=== PATIENT | female | born 1930 | race Caucasian/White ===

== ENCOUNTER 2016-04-16 09:12 | Inpatient (IN) | payer MEDICARE ==
[2016-04-16 09:55] LABS: BLOOD UREA NITROGEN 40 MG/DL (7-17); CALCIUM 9.4 MG/DL (8.4-10.2); CALCULATED OSMOLALITY 279 MOs/Kg (270-290); CHLORIDE 105 mEq/L (98-107); GLUCOSE 94 MG/DL (70-99); SODIUM LEVEL 140 mEq/L (137-146)
[2016-04-16] MEDS ORDERED: DEXAMETHASONE 4 MG/ML VIAL ONE (09:55)
[2016-04-16] MEDS ORDERED: GABAPENTIN 300 MG CAP ONE (09:55)
[2016-04-16] MEDS ORDERED: Celecoxib 200 MG CAP PO ONE (09:55)
[2016-04-16] MEDS ORDERED: ACETAMINOPHEN 325 MG/TAB TABLET PO ONE (09:55)
[2016-04-16] MEDS ORDERED: FENTANYL 250 MCG/5 ML VIAL IV ONE (10:00)
[2016-04-16] MEDS ORDERED: EPHEDrine 50 MG/ML VIAL IM ONE (10:00)
[2016-04-16] MEDS ORDERED: TRANEXAMIC ACID 1,000 MG in NS 100 ML IV ONE ×2 (10:00→12:00)
[2016-04-16] MEDS ORDERED: PROPOFOL 200 MG/20 ML VIAL IV ONE (10:00)
[2016-04-16] MEDS ORDERED: SUCCINYLCHOLINE 20 MG/1 ML INJ 10 ML MDV IV ONE (10:00)
[2016-04-16] MEDS ORDERED: ONDANSETRON HCL 4 MG/2 ML VIAL IV ONE (10:00)
[2016-04-16] MEDS ORDERED: PHENYLEPHRINE 10 MG/ML VIAL IC ONE (10:00)
[2016-04-16] MEDS ORDERED: LIDOCAINE 100 MG PFS IV ONE (10:00)
[2016-04-16] MEDS ORDERED: HYDROmorphone 1 MG INJECTION IV PRN ×4 (10:10→15:23)
[2016-04-16] MEDS ORDERED: hydrALAZINE 20 MG/ML VIAL IV PRN (10:10)
[2016-04-16] MEDS ORDERED: ONDANSETRON HCL 4 MG/2 ML VIAL IV PRN ×2 (10:10→15:23)
[2016-04-16] MEDS ORDERED: PROMETHAZINE 25 MG/ML VIAL IV PRN (10:10)
[2016-04-16] MEDS ORDERED: MEPERIDINE 25 MG/ML TUBEX IV PRN (10:10)
[2016-04-16] MEDS ORDERED: ONDANSETRON HCL 4 MG ODT TAB PO PRN (10:10)
[2016-04-16] MEDS ORDERED: FENTANYL 100 MCG/2 ML VIAL IV PRN ×2 (10:10)
[2016-04-16] MEDS ORDERED: LABETALOL 20 MG/4 ML SYRINGE IV PRN (10:10)
--- NOTE | 2016-04-16 10:11 | SC.ANESPOS ---
[id number], Hemodynamically Stable, Pain Control Adequate Phase I & II Recovery Complete: Yes Apparent Anesthesia Complication: No : N PACU Discharge Time: 19:05 - Vital Signs Blood Pressure: 112/66 Pulse: 58 Resp Rate: 18 O2 Sat: 93 Temp: 97.3 F - Comments Anesthesia Discharge Time Report Time 19:05
--- NOTE | 2016-04-16 10:13 | HIM.ANES ---
Anesthesia Evaluation & Plan Diagnoses: INFECT/INFLM REACTION DUE TO INTERNAL RIGHT HIP PROSTH, SUBS (04/16/16) - Focused Review of Systems Cardiac History: Yes: Hx Hypertension, Hx Cardiac Disorders, Hx Abnormal Cholesterol/Hyperlipidemia, Hx Deep Vein Thrombosis (AGE 13 AFTER T&A SX) HEENT: Yes: Cataract Removal (bilateral), Hx Vision Problem (READING), Other HEENT Problems Hx Other HEENT Surgery: T&A CHILD Hx Other HEENT Problems: SINNUSITIS, ALLERGIC RHINNITIS Respiratory: Yes: Hx Asthma (sees Dr. Burton. Also with chronic lesions on lungs , benign.), Hx Emphysema, Hx Pneumonia (12/2015 LT LUNG 2CM MID LUNG NODULE, NO active disease), Other Hx Respiratory (chronic cough) Gastrointestinal: Yes: Hx Gastroesophageal Reflux Disease, Hx Gastrointestinal Disorders Neurological/Musculoskeletal: Yes: Hx Back Pain No: Hx Neurological Disorders Psychological: Yes Hx Anxiety, Yes Hx Mental/Emotional Disorders Blood/Autoimmune: Yes: Hx Blood Transfusions, Hx Anemia No: Hx AIDS, Hx Hepatitis (type) Smoking Status: Former smoker Past Social History: Denies: Substance Use Disorder Hx Stress Test (date): No Hx Echocardiogram (date): Yes (02/20/2015 ef 55% MILD TO MODERATE MR) Hx Chest Xray (date): Yes (07/17/15) Surgical History: Yes: T&A, Back (LUMBAR DISCECTOMY X2), Hip (11/2015 RT HIP REPAIR, 12/2015 I&D RT HIP WITH ANTIBIOTIC SPACER), Knee (RT TKA 2006, RT REDO TKA 03/28/2015), Other (IVC filter 01/02/2016 Dr. Trinh. Hip fracture repair 06/2015, revision.) Other Surgical History: T&A CHILD 01/02/2016 IVC FILTER TOTAL HYSTERECTOMY 1969' BTL - Focused Physical Exam NPO since: after Midnight Mallampati: Class II Thyromental Distance: Greater than 3 Dental: Removable Dental Work Cardiovascular/Chest: Normal Respiratory: Lungs clear Any problems with anesthesia, including nausea and vomiting?: No Any relatives with a history of Malignant Hyperthermia?: No Does the patient have a history of Motion Sickness-: No Other: Problem List Problem Status Onset Anxiety Acute Chronic anticoagulation Acute Closed right hip fracture Acute DVT (deep venous thrombosis) Acute Dehydration Acute Hematoma, non-traumatic Acute Hip fracture Acute Hip pain Acute Hypertension Acute Hypokalemia Acute Hyponatremia Acute Hypotension Acute Hypothermia not associated with low environmental temperature Acute Infection of prosthetic total hip joint Acute Intertrochanteric fracture of right hip Acute Physical debility Acute Right knee pain Acute Septic arthritis of hip Acute Status post total right knee replacement Acute Anemia Chronic Asthma Chronic Dyslipidemia Chronic GERD (gastroesophageal reflux disease) Chronic Hip pain Chronic Osteoporosis Chronic CBC/BMP/Other 04/16/16 09:21 Allergies Allergy/AdvReac Type Severity Reaction Status Date / Time No Known Allergies Allergy Verified 01/11/16 14:06 Home Medications Medication Instructions Recorded Last Taken Type Calcium Carb/Vit D3/Minerals 1 tab PO BID 05/05/12 01/14/16 17:18 History [Calcium 600 + D Tablet] Omeprazole 20 mg PO DAILY 05/05/12 01/15/16 06:48 History Ascorbic Acid [Vitamin C] 500 mg PO DAILY 01/24/15 01/13/16 14:07 History Pravastatin [Pravachol] 20 mg PO DAILY 01/24/15 01/14/16 22:51 History Budesonide/Formoterol Fumarate 2 puff INH BID 03/29/15 01/12/16 07:25 History [Symbicort 160-4.5 Mcg Inhaler] Carvedilol [Coreg] 12.5 mg PO QAM 11/22/15 01/15/16 08:08 History Bupropion HCl [Bupropion HCl Sr] 100 mg PO BID 01/02/16 01/15/16 08:09 History Fluticasone Propionate [Flonase] 2 spray AYLA DAILY 01/02/16 01/15/16 08:09 History Gluc 2Kcl/Chondr/Jeanne Hy/Hy AC 1 cap PO DAILY 01/02/16 01/10/16 16:00 History [Glucosamine & Chondroitin Cap] [place]-3S/Dha/Epa/Fish Oil [Fish 1 cap PO DAILY 01/02/16 01/14/16 12:59 History Oil 1,200 mg Softgel] Vitamin B Complex [B Complex] 1 tab PO DAILY 01/02/16 01/10/16 16:00 History Vitamin E 200 unit PO DAILY 01/02/16 01/14/16 13:00 History Carvedilol [Coreg] 25 mg PO HS 04/13/16 Unknown History Oxycodone Immediate Release 5 mg PO Q4-6H PRN 04/13/16 Unknown History [Oxycodone Immediate Release (OxyIR)] L.acidoph & Paracasei,B.lactis 1 each PO DAILY 04/14/16 Unknown History [Probiotic] Methylcellulose [Fiber Therapy] 1,000 mg PO DAILY 04/14/16 Unknown History Turmeric Root Extract [Turmeric] 500 mg PO DAILY 04/14/16 Unknown History Height and Weight Patient's height 5 ft 7 in Patient's weight 187 lb 11.2 oz BMI 29.4 - Anesthetic Plan Anesthesia Type: General ASA Class: 3 -: I have examined this patient and reviewed the medical record. The patient has been assessed prior to anesthesia. Risks and benefits of anesthesia and anesthetic technique options have been discussed and all questions answered. The patient accepts the risk and desires me to proceed with the planned anesthetic.
[2016-04-16] MEDS ORDERED: BACITRACIN 50,000 UNITS VIAL ONE (10:34)
[2016-04-16] MEDS: BUPIVACAINE LIPOSOME/PF 1.3% 20 ML VIAL INF ONE ×3 (11:04→14:30)
--- NOTE | 2016-04-16 15:12 | HIMOPRPT ---
DATE OF PROCEDURE: 04/16/16 PREOPERATIVE DIAGNOSIS: 1. Infected right hip hemiarthroplasty 2. Status post removal of components and placement of antibiotic spacer right hip 01/02/2016 POSTOPERATIVE DIAGNOSIS: Same PROCEDURE: 1. Irrigation and debridement right hip. Removal of antibiotic spacer. 2. Revision right hip hemiarthroplasty SURGEON: Georges Child D.O. [facility] Health Officer: Rigo JUNG ANESTHESIOLOGIST: Dr. Hurd ANESTHESIA: GETA ESTIMATED BLOOD LOSS: 700cc COMPLICATIONS: none DRAINS: hemovac x 2 incisional wound vac SPECIMENS: Frozen sections x 5 intra-op wound culture x 2 FINDING: as above < 5 Neutrophils/HPF on Frozen sections DESCRIPTION OF PROCEDURE: Mrs Nix is an 85-year-old female with a history of infected right hip hemiarthroplasty. Patient initially underwent removal of a cephalomedullary nail for nonunion on 11/23/2015. This was converted to a calcar replacing hemiarthroplasty. She unfortunately became infected and underwent a washout x2 on 01/02/2016 and repeat I and D on 01/11/2016. An antibiotic spacer was placed. She was treated with 6 weeks of IV antibiotics. She had been followed by infectious disease specialist at [facility]. Patient has now been off of all antibiotics for 4 weeks. Workup for recurrent infection was within normal limits. A repeat aspiration was normal and sed rate and CRP continued to trend down. Patient presents today for removal of the antibiotic spacer and replantation/revision of right hip hemiarthroplasty. All risks, benefits, and alternatives to the planned procedure were discussed with the patient. She did understand these risks and elected to proceed. On the day of her procedure she was identified in the preop holding area and the right lower extremity was marked as the correct operative side. She was then taken the operating room where she was positioned in the lateral decubitus position with the right side up and all bony prominences well padded. She did receive vancomycin IV after cultures were obtained. 1 g IV of tranexamic acid was given preoperatively as well. The right lower extremity was then prepped and draped in sterile fashion. A time-out was performed, again identifying the correct patient and the right side as correct operative side. Patient's existing lateral incision was marked. Ten blade was utilized to incise the skin. Midportion of the scar was ellipsed for better wound closure. Soft tissue planes were then developed and the ITB and was identified. ITB and was then incised in line with the skin incision. Significant amount of scar tissue was present and this was released developing our tissue planes. The abductor musculature that remained attached to proximal femur next was identified. There was significant chronic degeneration and atrophy of the abductors from multiple surgical procedures. The anterior 1/3 of the abductors were again released and the hip joint was exposed. The antibiotic spacer prosthesis was then dislocated. Small osteotome was utilized to remove the proximal edge of the cement mantle and then the spacer was easily removed from the canal. No additional bone loss was noted. At this point I thoroughly irrigated the patient's canal and the entirety of the hip. A thorough debridement of all skin , subcutaneous tissues, muscle, fascia and bone was performed with rongeur, curettes, forceps and scalpel. Reverse curettes were utilized to remove pseudomembrane from the femoral canal. The acetabulum was fully exposed and inspected. No further cartilage damage to the acetabulum was noted we then began our preparation of the femur. Sequentially reamed by hand up to a size 16.5 mm Reamer. This was a tight canal fit and was stable. An intraoperative x -ray was taken demonstrating good fill of the canal. After the 16.5 mm Reamer was seated we then began the preparation for the cone body. Sequential proximal reamers were placed up to a 25 mm Reamer which did give bony contact. A 25 mm body was then chosen. The trial components were then assembled. The 25 mm +0 mm trial body was then inserted and tightened. A reduction was performed with a +0 head. This did restore the patient's leg lengths. Full range of motion was achieved on the OR table. No impingement or instability was noted. I marked the patient's current correct anteversion with a Bovie and the trial components were then removed. The canal and joint were again thoroughly irrigated with an additional 3 L of sterile saline. Next the final implant consisting of a 127 mm x 17 mm plasma episcopal modular stem with a 25 mm +0 proximal cone body was malleted into position. This was a tight canal fit and was stable. The final 48 mm x 28 mm +0 bipolar head was then malleted into position. A final reduction was performed. The hip was again placed through range of motion and was stable. Leg lengths were restored. One Dall- Miles cable was placed in the intertrochanteric region while preparation of the femur was performed. This was left in place for additional stability. The Hemovac drain was then placed into the joint. A 2nd Hemovac drain was placed between the abductor tissue and the ITB and. The abductors were repaired back to the trochanter with a 5. FiberWire suture in Long-Umang fashion through drill holes in the trochanter. This was reinforced proximally with 0 Ethibond interrupted sutures. An adequate abductors repair was achieved despite lack of healthy tissue. No additional musculotendinous loss occurred. The ITB and was then closed with interrupted 1. Vicryl sutures as well as a running 1. Strata fix Quill suture. The subcutaneous tissues were closed in layered fashion with 0 Vicryl, 2 O Vicryl sutures and david for the skin. An incisional Prevena wound VAC was applied at the end of the case. Patient was placed into an abduction pillow. She tolerated this procedure well and was transferred to the PACU in stable condition. Postop plan: 24 hours of IV vancomycin then discontinue. We will continue to follow intraoperative cultures taken during this procedure. Drains out when less than 50 cc per shift. Incisional wound VAC will remain in place for 5 days and then an Aqua gel dressing will be applied. Weightbearing as tolerated right lower extremity with physical therapy. Anterolateral hip precautions. Discharge plan to rehab/snf facility Rigo JUNG was the operative pest controller assistant during this case. Due to the complex nature of the procedure, and under direct supervision, his assistance was required for patient positioning, prepping and draping, soft tissue retraction, handling of instruments, manipulation of the extremity, wound closure, application of dressings postoperatively Implants: [place] [employer] modular Plasma stem 127mm x 17mm 25mm +0 Cone Body 48mm x 28mm +0 Bipolar V40 Head 1 Dall Miles cable
[2016-04-16] MEDS ORDERED: DIPHENHYDRAMINE 50 MG/ML VIAL IV PRN (15:23)
[2016-04-16] MEDS ORDERED: Aluminum;Magnesium;Simethicone 30 ML UDC PO PRN (15:23)
[2016-04-16] MEDS ORDERED: MAGNESIUM HYDROXIDE 30 ML BOTTLE PO PRN (15:23)
[2016-04-16] MEDS ORDERED: DIPHENHYDRAMINE 25 MG CAP PO PRN (15:23)
[2016-04-16] MEDS ORDERED: SODIUM CHLORIDE 0.9% 3 ML FLUSH FLUSH PRN (15:23)
[2016-04-16] MEDS ORDERED: HYDROmorphone 1 MG INJECTION ONE (15:36)
[2016-04-16] MEDS ORDERED: NALOXONE 0.4 MG/ML AMPULE IV SCH (16:00)
[2016-04-16] MEDS ORDERED: SODIUM CHLORIDE 0.9% 3 ML FLUSH FLUSH SCH (16:00)
[2016-04-16] MEDS ORDERED: Acetaminophen, Intravenous 1,000 MG/100 ML IVBOT IV ONE (16:00)
[2016-04-16] MEDS ORDERED: Pharmacy Discontinue All Previous Acetaminophen Orders SCH (16:00)
[2016-04-16] MEDS ORDERED: Pharmacy Order Set Alert SCH (16:00)
[2016-04-16] MEDS ORDERED: FLUTICASONE PROPIONATE 16 GM BOT NAS SCH (16:00)
--- NOTE | 2016-04-16 16:18 | DIRPT ---
CLINICAL DATA: Status post right hip replacement. EXAM: PELVIS - 1-2 VIEW COMPARISON: Previous examinations, including earlier today. FINDINGS: Right hip bipolar prosthesis with a proximal femoral cerclage wire. The prosthetic components are in satisfactory position and alignment with no fracture or dislocation. Diffuse osteopenia. Atheromatous arterial calcifications. IMPRESSION: Satisfactory postoperative appearance of a right hip prosthesis. Electronically Signed By: Jorge Lei M.D. On: 04/16/2016 16:15
[2016-04-16] MEDS: FENTANYL 100 MCG/2 ML VIAL ONE ×2 (16:35→17:11)
[2016-04-16] MEDS: NS 1,000 ML IV SCH (16:51)
[2016-04-16] MEDS: ALBUTEROL 0.083% 3 ML NEB NEB SCH (19:09)
[2016-04-16] MEDS: BUDESONIDE 0.5 MG NEB NEB SCH (19:11)
--- NOTE | 2016-04-16 19:21 | HIMCONSMED ---
Consultation Date: 04/16/16 Requesting Physician: Georges Child Consulting Doctor: Val León Consult Reason: Medical Management Patricia Schultz is an 85 year old woman with a known R hip infection who has been residing at [facility]. She had a hip replacement last spring that became infected, had to be removed and in December of 2015 the joint was removed and an antibiotic spacer inserted. She has received IV antibiotics for eight weeks and returns at this time for final right total hip arthroplasty. Additional complications include a prior history of DVT in her right leg in November 2015 , with placement of an IVC filter January 04, 2016. Due to her anticoagulation, she had significant bleeding and developed a large hematoma of the right hip. For this reason, no anticoagulation is planned after this admission, just aspirin, and the continued presence of the IVC filter. Chief Complaint: medical management - Past Medical and Surgical History Cardiac History: Reports: Hypertension, Hypercholesterolemia, Valvular Heart Disease Respiratory History: Reports: Asthma (sees Dr. Burton. Also with chronic lesions on lungs, benign.), Pneumonia (12/2015 LT LUNG 2CM MID LUNG NODULE, NO active disease), Emphysema. Denies: Pulmonary Embolism GI/ History: Reports: Urinary Tract Infection (CHRONIC UTI WITH E.COLI), Gastroesophageal Reflux Systemic History: Reports: Anemia. Denies: Cancer Musculoskeletal History: Reports: Arthritis, Osteoarthritis Psychological History: Reports: Anxiety. Denies: Substance Use Disorder Neurological History: Reports: No Significant History Past Surgical History: Reports: Hysterectomy, Tonsillectomy/Adnoidectomy, Other (IVC filter 01/02/2016 Hip fracture repair 06/2015, revision.) ADDITIONAL HISTORY: 03/28/15: revision of right total knee arthroplasty- Dr. Child 07/18/15: Right hip gamma nail and right hip intramedullary nail for repair of intertrochanteric fracture- Dr. Hayden 11/13/15: Aspiration of R hip joint 11/22-11/27/15 admitted for infection of right hip. Developed DVT of right leg. Started on Xarelto. 01/01/16:recurrent or persistent infection of right hip- IVC filter placed by Dr. Trinh. Found to have E. Coli infection of hip. 01/02/16: R hip hemiarthroplasty hardware removed by Dr. Child. PICC line placed and patient sent to [facility] for further antibiotics. Allergies No Known Allergies Allergy (Verified 04/16/16 10:49) Home Medications Calcium Carb/Vit D3/Minerals [Calcium 600 + D Tablet] 1 tab PO BID 05/05/12 Ascorbic Acid [Vitamin C] 500 mg PO DAILY 01/24/15 Pravastatin [Pravachol] 20 mg PO DAILY 01/24/15 Budesonide/Formoterol Fumarate [Symbicort 160-4.5 Mcg Inhaler] 2 puff INH BID Carvedilol [Coreg] 12.5 mg PO QAM 11/22/15 Bupropion HCl [Bupropion HCl Sr] 100 mg PO BID 01/02/16 Fluticasone Propionate [Flonase] 2 spray AYLA DAILY 01/02/16 Gluc 2Kcl/Chondr/Jeanne Hy/Hy AC [Glucosamine & Chondroitin Cap] 1 cap PO DAILY [place]-3S/Dha/Epa/Fish Oil [Fish Oil 1,200 mg Softgel] 1 cap PO DAILY 01/02/16 Vitamin B Complex [B Complex] 1 tab PO DAILY 01/02/16 Vitamin E 200 unit PO DAILY 01/02/16 Carvedilol [Coreg] 25 mg PO HS 04/13/16 Oxycodone Immediate Release [Oxycodone Immediate Release (OxyIR)] 5 mg PO Q4-6H PRN 04/13/16 L.acidoph & Paracasei,B.lactis [Probiotic] 1 each PO DAILY 04/14/16 Methylcellulose [Fiber Therapy] 1,000 mg PO DAILY 04/14/16 Turmeric Root Extract [Turmeric] 500 mg PO DAILY 04/14/16 - Social History Travel Outside of [place] in the Last 3 Months?: No Lives: in Retirement/SNF Smoking Status: Former smoker Social History: Denies: Alcohol Use, Substance Use Disorder - Family History Reports: Hypertension (SON), Diabetes (CHILDREN), Cancer (SON BLADDER CANCER), Cardiac Disorders (MOTHER, SON). Denies: Stroke - Review of Systems Constitutional: Weakness. negative: Chills, Fever, Diaphoresis Eyes: No Symptoms Reported Ears: No Symptoms Reported Nose: No Symptoms Reported. negative: Bleeding, Congestion, Discharge Mouth: Denture, Dry Mouth Throat/Neck: No Symptoms Reported. negative: Hoarseness, Snoring, Lymphadenopathy Respiratory: No Symptoms Reported. negative: Cough, Shortness of Breath, Wheezing Cardiovascular: negative: Chest Pain, Edema, Palpitations, PND Gastrointestinal: Heartburn, Hemorrhoids. negative: Nausea, Vomiting, Abdominal Pain, Diarrhea, Constipation Genitourinary: Postmenopause. negative: Dysuria, Frequency Neurological: Gait Difficulty Musculoskeletal:: Arthritis, Osteoarthritis Integumentary: No Symptoms Reported Allergic/Immunologic: No Symptoms Reported Hematologic: Anemia Endocrine: No Symptoms Reported Psychiatric: No Symptoms Reported - Physical Exam Vital Signs: Initial Vitals Temperature 97.8 F 04/16/16 10:41 Pulse Rate 68 04/16/16 10:41 Respiratory Rate 18 04/16/16 10:41 Blood Pressure 186/82 H 04/16/16 10:41 Pulse Oxygen Saturation 96 04/16/16 10:41 Constitutional: No apparent distress, Alert Oriented to: Time, Person, Place - HEENT Head: Normal Eye: Normal Oropharynx: Normal Tympanic Membrane: Normal ENT EAC: Normal Nose: No Symptoms Reported Respiratory: Normal - CTA Cardiovascular: Normal - GI Auscultation: Normal Palpation: Normal Tenderness: Non tender Romo's Sign: Negative Rectal Exam: Deferred - Musculoskeletal Back: Normal Extremities: Normal Spine: non-tender - Integumentary Skin: Warm, Dry Lymphatics: Normal - Neurologic Memory Impaired: Normal Motor Function: Normal Cranial Nerve: Normal Cerebellar: Normal Mood Description: Normal Thought: Coherent Perception: Normal - Lab Results Laboratory Tests 04/16/16 04/16/16 09:21 15:40 Hgb 9.7 L Hct 28.8 L Sodium 140 Potassium 4.3 Chloride 105 Carbon Dioxide 27 Anion Gap 12 BUN 40 H Creatinine 1.30 H Estimated GFR (MDRD) 39 L Glucose 94 Calculated Osmolality 279 Calcium 9.4 - Assessment (1) Acute kidney injury superimposed on chronic kidney disease N17.9 - ACUTE KIDNEY FAILURE, UNSPECIFIED; N18.9 - CHRONIC KIDNEY DISEASE, UNSPECIFIED Acute Present on Admission: Yes Hydrate patient and follow renal function closely. Patient receiving vancomycin for hip prophylaxis against infection. (2) Anemia D64.9 - ANEMIA, UNSPECIFIED Acute Present on Admission: Yes Qualifiers: Anemia type: other cause Iron deficiency anemia type: I Vitamin B12 deficiency anemia type: V Folate deficiency anemia type: F Bone marrow failure anemia type: B Hemolytic anemia type: H Other causes of anemia: chronic disease, kidney Qualified Code(s): N18.9 - Chronic kidney disease, unspecified; D63.1 - Anemia in chronic kidney disease Patient also bleeds easily, so will want to follow CBC closely. (3) Physical debility R53.81 - OTHER MALAISE Acute Consult Physical therapy to begin rehabilitation and gait training. Continue falls and safety precautions (4) Hypertension I10 - ESSENTIAL (PRIMARY) HYPERTENSION Acute Present on Admission: Yes Qualifiers: Hypertension type: essential hypertension Qualified Code(s): I10 - Essential (primary) hypertension continue Coreg 12.5 mg BID, follow BP closely (5) Osteoporosis M81.0 - AGE-RELATED OSTEOPOROSIS W/O CURRENT PATHOLOGICAL FRACTURE Chronic Present on Admission: Yes Continue calcium and vitamin-D (6) Asthma J45.909 - UNSPECIFIED ASTHMA, UNCOMPLICATED Chronic Qualifiers: Asthma severity: mild persistent Asthma complication type: uncomplicated Qualified Code(s): J45.30 - Mild persistent asthma, uncomplicated Chronic. No evidence of acute exacerbation. Plan: Continue home medications. Add additional medications depending on hospital course. (7) Hip pain M25.559 - PAIN IN UNSPECIFIED HIP Chronic Qualifiers: Laterality: right Qualified Code(s): M25.551 - Pain in right hip Continue narcotic analgesics on as needed basis Case Care Discussed with: Patient, Consultants, Family, Nursing Staff Total Time: 65 min Critical Care: No Couseling Time (>50% in counseling/coordination): Yes Code: [id number]
[2016-04-16] MEDS: CALCIUM CARBONATE + VITAMIN D 500 MG TAB PO SCH (20:01)
[2016-04-16] MEDS: Aspirin (Orange Enteric Coated) 325 mg tab PO SCH (20:01)
[2016-04-16] MEDS: PRAVASTATIN 20 MG TAB PO SCH (20:03)
[2016-04-16] MEDS: DOCUSATE-SENNA CONCENTRATE TAB PO SCH (20:16)
[2016-04-16] MEDS: OXYCODONE HCL 5 MG TABLET PO PRN (20:16)
[2016-04-16] MEDS: OXYCODONE (OxyCONTIN) 10 MG TAB PO SCH (20:16)
[2016-04-16] MEDS: BuPROPion (BID formulation) 100 MG TAB.SR.12H PO SCH (20:16)
[2016-04-16] MEDS: SODIUM CHLORIDE 0.9% 3 ML FLUSH FLUSH SCH (20:19)
[2016-04-16] MEDS ORDERED: CARVEDILOL 12.5 MG TAB PO SCH (21:00)
[2016-04-16] MEDS: Acetaminophen, Intravenous 1,000 MG/100 ML IVBOT IV SCH (23:58)
[2016-04-17] MEDS: ALBUTEROL 0.083% 3 ML NEB NEB SCH ×4 (01:09→19:11)
[2016-04-17] MEDS: OXYCODONE HCL 5 MG TABLET PO PRN ×2 (01:47→06:10)
[2016-04-17] MEDS: NS 1,000 ML IV SCH ×2 (02:43→14:09)
[2016-04-17] MEDS: Acetaminophen, Intravenous 1,000 MG/100 ML IVBOT IV SCH ×3 (04:26→14:55)
[2016-04-17] MEDS: SODIUM CHLORIDE 0.9% 3 ML FLUSH FLUSH SCH ×2 (06:13→17:35)
--- NOTE | 2016-04-17 07:02 | PCM.ORTHBL ---
- Subjective Post Op Day: 1 Daily Assessment - Patient: Reports: No new complaints, Awake Alert Oriented x4 , Pain is less, Tolerating Regular Diet, Afebrile, Other (denies chest pain). Denies: Ambulating with Physical Therapist (To begin today), Difficulty Swallowing, Shortness of breath, Nausea, Vomiting - Objective / Physical Exam Vital Signs: Temperature: 97.3 F (04/17/16 06:45) HR: 58 (04/17/16 06:45)RR: 18 (04/17/16 06: 45) BP: 112/66 (04/17/16 06:45)Pulse Ox: 93 (04/17/16 06:45) General: Alert, Oriented x3, Cooperative, No acute distress, Well appearing Musculoskeletal / Extremities: 2 plus Dorsalis Pedis Pulse, Dressing Clean/Dry/ Intact. negative: Tenderness (no significant calf tenderness) Neurological: Positive Sensation First Dorsal Web Space, Sensation to light touch intact, Extensor Hallicus Longus Intact, Flexor Hallicus Longus Intact, Dorsiflexion Intact, Plantarflexion Intact Skin: No rashes Laboratory/Diagnostics Reviewed: 04/17/16 06:33 04/17/16 06:33 - Assessment and Plan (1) Status post revision of total hip replacement Acute Z96.649 - PRESENCE OF UNSPECIFIED ARTIFICIAL HIP JOINT Present on Admission: Yes Plan: POD#1 s/p explant of antibiotic spacer and revision right LION PT/OT/WBAT TEDS/SCDS/ECASA 325mg BID for 30 days post-op for DVT prophylaxis. Patient has IVC filter. She has history of recurrent hematoma and wound dehiscence Continue pain management Awaiting final cultures. DC plan for SNF/rehab
[2016-04-17] MEDS: BUDESONIDE 0.5 MG NEB NEB SCH ×2 (07:34→19:14)
[2016-04-17 07:38] LABS: BLOOD UREA NITROGEN 34 MG/DL (7-17); CALCIUM 8.3 MG/DL (8.4-10.2); CALCULATED OSMOLALITY 271 MOs/Kg (270-290); CHLORIDE 106 mEq/L (98-107); GLUCOSE 76 MG/DL (70-99); SODIUM LEVEL 137 mEq/L (137-146)
[2016-04-17] MEDS ORDERED: Remove Transdermal Scopolamine Patch after 24 hours ONE (08:00)
[2016-04-17] MEDS: Aspirin (Orange Enteric Coated) 325 mg tab PO SCH ×2 (08:57→17:34)
[2016-04-17] MEDS: PSYLLIUM 1 PACK PO SCH (08:57)
[2016-04-17] MEDS: OXYCODONE (OxyCONTIN) 10 MG TAB PO SCH ×2 (08:57→21:12)
[2016-04-17] MEDS: BuPROPion (BID formulation) 100 MG TAB.SR.12H PO SCH (08:57)
[2016-04-17] MEDS: CALCIUM CARBONATE + VITAMIN D 500 MG TAB PO SCH ×2 (08:57→17:34)
[2016-04-17] MEDS: OMEGA-3-ACID ETHYL ESTERS 1000 MG CAP PO SCH (08:57)
[2016-04-17] MEDS: FLUTICASONE PROPIONATE 16 GM BOT NAS SCH (08:58)
[2016-04-17] MEDS ORDERED: CARVEDILOL 12.5 MG TAB PO SCH (09:00)
[2016-04-17] MEDS: ASCORBIC ACID 500 MG TAB PO SCH (09:00)
[2016-04-17] MEDS: PROBIOTIC BLEND TAB PO SCH (09:00)
[2016-04-17] MEDS ORDERED: [UNRECOGNIZED DRUG - OTHER] PO SCH (09:00)
[2016-04-17] MEDS: VIT B-C COMPLEX (NEPHROVITE) TAB PO SCH (09:41)
--- NOTE | 2016-04-17 10:42 | GENMEDPROG ---
Chief Complaint: s/p R hip arthroplasty, HTN, ZAN, UTI, anemia - Physical Examination Vital Signs and I&O: Last Vital Signs Temp 97.3 F L 04/17/16 06:45 Pulse 58 L 04/17/16 06:45 Resp 18 04/17/16 06:45 BP 112/66 04/17/16 06:45 Pulse Ox 93 04/17/16 06:45 Oxygen Pulse Oxygen Saturation 93 O2 Device Room Air Oxygen Flow Rate 1 Fraction of Inspired Oxygen ( 100 FIO2) Intake & Output 04/14/16 04/15/16 04/16/16 04/17/16 23:59 23:59 23:59 23:59 Intake Total 1495 Output Total 900 510 Balance -900 985 Patient's weight 85.139 kg 84.822 kg 85.36 kg General: Alert, Oriented x3, Cooperative, No acute distress, Well appearing HEENT: PERRLA, EOMI, Anicteric Sclera, Mucous membr. moist/pink Neck: Full range of motion, Normal Trachea alignment, Normal inspection Lymphatics: Normal Respiratory: Normal - CTA, Diminished Cardiovascular: Regular rate and rhythm, Normal S1, Normal S2 GI: Normal bowel sounds, Soft, Non tender, No masses Extremities/Musculoskeletal: Normal pulses, DJD Skin: No rashes Neurological: Normal speech, Strength at 5/5 X4 ext, Normal tone, Cranial nerves 3-12 NL Psych/Mental Status: Appropriate, Normal Affect, Cooperative Lab/DI/Studies Reviewed: Microbiology 04/14/16 08:30 Urine - Clean Catch - Midstream Urine Culture - Final Staphylococcus epidermidis Enterococcus faecium - Assessment (1) Acute kidney injury superimposed on chronic kidney disease Acute N17.9 - ACUTE KIDNEY FAILURE, UNSPECIFIED; N18.9 - CHRONIC KIDNEY DISEASE, UNSPECIFIED Comment/Plan: Hydrate patient and follow renal function closely. Patient receiving vancomycin for hip prophylaxis against infection. Continue hydration if patient will be in hospital receiving PT. Renal funciton improving, but still not at baseline. (2) Anemia Acute D64.9 - ANEMIA, UNSPECIFIED Qualifiers: Anemia type: other cause Iron deficiency anemia type: I Vitamin B12 deficiency anemia type: V Folate deficiency anemia type: F Bone marrow failure anemia type: B Hemolytic anemia type: H Other causes of anemia: chronic disease, kidney Qualified Code(s): N18.9 - Chronic kidney disease, unspecified; D63.1 - Anemia in chronic kidney disease Comment/Plan: Patient also bleeds easily, so will want to follow CBC closely. (3) UTI (urinary tract infection), bacterial Acute N39.0 - URINARY TRACT INFECTION, SITE NOT SPECIFIED; A49.9 - BACTERIAL INFECTION, UNSPECIFIED Comment/Plan: Staph epi and Enterococcus, both sensitive to Linezolid. Recommend 600 mg PO BID x 7 days, and hold Bupropion for that duration. (4) Physical debility Acute R53.81 - OTHER MALAISE Comment/Plan: Consult Physical therapy to begin rehabilitation and gait training. Continue falls and safety precautions (5) Hypertension Acute I10 - ESSENTIAL (PRIMARY) HYPERTENSION Qualifiers: Hypertension type: essential hypertension Qualified Code(s): I10 - Essential (primary) hypertension Comment/Plan: Hold or reduce dose of Coreg to 6.25 mg BID, follow BP closely- quite low today. Recommend continued fluids. (6) Osteoporosis Chronic M81.0 - AGE-RELATED OSTEOPOROSIS W/O CURRENT PATHOLOGICAL FRACTURE Comment/Plan: Continue calcium and vitamin-D (7) Asthma Chronic J45.909 - UNSPECIFIED ASTHMA, UNCOMPLICATED Qualifiers: Asthma severity: mild persistent Asthma complication type: uncomplicated Qualified Code(s): J45.30 - Mild persistent asthma, uncomplicated Comment/Plan: Chronic. No evidence of acute exacerbation. Plan: Continue home medications. Add additional medications depending on hospital course. (8) Hip pain Chronic M25.559 - PAIN IN UNSPECIFIED HIP Qualifiers: Laterality: right Qualified Code(s): M25.551 - Pain in right hip Comment/Plan: Continue narcotic analgesics on as needed basis
[2016-04-17] MEDS ORDERED: Vaccine Screening Complete SCH (13:00)
[2016-04-17] MEDS: LINEZOLID 600 MG TAB PO SCH ×2 (14:55→21:12)
[2016-04-17] MEDS: ACETAMINOPHEN 325 MG/TAB TABLET PO SCH (21:12)
[2016-04-17] MEDS: CARVEDILOL 6.25 MG TAB PO SCH (21:13)
[2016-04-17] MEDS: PRAVASTATIN 20 MG TAB PO SCH (21:13)
[2016-04-17] MEDS: DOCUSATE-SENNA CONCENTRATE TAB PO SCH (21:14)
[2016-04-17] MEDS ORDERED: Docusate Sodium 100 MG CAP ONE (21:18)
[2016-04-18] MEDS: ALBUTEROL 0.083% 3 ML NEB NEB SCH ×4 (01:00→20:45)
[2016-04-18] MEDS: ACETAMINOPHEN 325 MG/TAB TABLET PO SCH ×3 (06:06→22:04)
[2016-04-18] MEDS: SODIUM CHLORIDE 0.9% 3 ML FLUSH FLUSH SCH ×2 (06:07→17:06)
--- NOTE | 2016-04-18 06:46 | PCM.ORTHBL ---
- Subjective Post Op Day: 2 Daily Assessment - Patient: Reports: No new complaints, Awake Alert Oriented x4 , Pain is less, Tolerating Regular Diet, Voiding without difficulty, Afebrile, Ambulating with Physical Therapist. Denies: Shortness of breath, Nausea, Vomiting - Objective / Physical Exam Vital Signs: Temperature: 97.4 F (04/18/16 06:00) HR: 80 (04/18/16 06:00)RR: 20 (04/18/16 06: 00) BP: 95/55 (04/18/16 06:00)Pulse Ox: 93 (04/18/16 06:00) General: Alert, Oriented x3, Cooperative, No acute distress, Well appearing Musculoskeletal / Extremities: 2 plus Dorsalis Pedis Pulse, Dressing Clean/Dry/ Intact. negative: Tenderness (no calf tendernes) Neurological: Positive Sensation First Dorsal Web Space, Sensation to light touch intact, Extensor Hallicus Longus Intact, Flexor Hallicus Longus Intact, Dorsiflexion Intact, Plantarflexion Intact Skin: No rashes - Assessment and Plan (1) Status post revision of total hip replacement Acute Z96.649 - PRESENCE OF UNSPECIFIED ARTIFICIAL HIP JOINT Present on Admission: Yes Plan: POD#2 s/p removal of antibiotic spacer and right LINO revision PT/OT/WBAT TEDS/SCDS/ECASA 325mgBID for 30 days post-op for DVT prophylaxis. Patient has IVC filter. History of recurrent hematoma and wound dehiscence Continue pain management Patient on Linezolid for 1 week given urine cultures D/C plan for [facility]
[2016-04-18 07:27] LABS: MPV 9.1 fL (7.4-10.4)
[2016-04-18] MEDS: BUDESONIDE 0.5 MG NEB NEB SCH ×2 (07:39→20:47)
[2016-04-18] MEDS: LINEZOLID 600 MG TAB PO SCH ×2 (08:17→22:05)
[2016-04-18] MEDS: PSYLLIUM 1 PACK PO SCH (08:17)
[2016-04-18] MEDS: ASCORBIC ACID 500 MG TAB PO SCH (08:17)
[2016-04-18] MEDS: CALCIUM CARBONATE + VITAMIN D 500 MG TAB PO SCH ×2 (08:17→17:06)
[2016-04-18] MEDS: OMEGA-3-ACID ETHYL ESTERS 1000 MG CAP PO SCH (08:17)
[2016-04-18] MEDS: PROBIOTIC BLEND TAB PO SCH (08:17)
[2016-04-18] MEDS: Aspirin (Orange Enteric Coated) 325 mg tab PO SCH ×2 (08:17→17:06)
[2016-04-18] MEDS: VIT B-C COMPLEX (NEPHROVITE) TAB PO SCH (08:17)
[2016-04-18] MEDS: FLUTICASONE PROPIONATE 16 GM BOT NAS SCH (08:18)
[2016-04-18] MEDS: CARVEDILOL 6.25 MG TAB PO SCH ×2 (08:18→22:05)
[2016-04-18] MEDS ORDERED: Pharmacy Change IV Fluid Rate to KVO XX SCH (09:00)
[2016-04-18] MEDS ORDERED: NS 1,000 ML IV SCH (09:00)
[2016-04-18] MEDS: OXYCODONE (OxyCONTIN) 10 MG TAB PO SCH ×2 (09:52→22:09)
[2016-04-18] MEDS: OXYCODONE HCL 5 MG TABLET PO PRN ×2 (12:48→22:59)
--- NOTE | 2016-04-18 16:35 | GENMEDPROG ---
Chief Complaint: Feels okay. Still moderate pain in her right hip. Blood pressures remain borderline Notes Reviewed: Yes Events from last night noted and discussed with Clinical Staff Current Medication List: Reviewed Currently: Denies: Cough, Wheezing, FONSECA, SOB - Physical Examination Vital Signs and I&O: Last Vital Signs Temp 98 F 04/18/16 13:35 Pulse 75 04/18/16 13:35 Resp 18 04/18/16 12:52 BP 118/58 L 04/18/16 12:52 Pulse Ox 97 04/18/16 13:35 Oxygen Pulse Oxygen Saturation 97 O2 Device Room Air Oxygen Flow Rate 1 Fraction of Inspired Oxygen ( 100 FIO2) Intake & Output 04/15/16 04/16/16 04/17/16 04/18/16 23:59 23:59 23:59 23:59 Intake Total 3414 600 Output Total 500 540 5226 Balance -900 2904 -400 Patient's weight 84.822 kg 85.36 kg General: Alert, Oriented x3, Cooperative, No acute distress, Well appearing HEENT: Normal, PERRLA, EOMI, Anicteric Sclera Neck: Non-tender, Full range of motion, Normal Trachea alignment, Normal inspection. negative: JVD Lymphatics: Normal. negative: Adenopathy Respiratory: Normal - CTA Cardiovascular: Regular rate and rhythm, No Gallops,Rubs/Murmurs GI: Normal bowel sounds, Soft, Non tender, No hepatospenomegaly Extremities/Musculoskeletal: Normal pulses, Tenderness, Swelling Skin: No rashes, No breakdown Neurological: Normal speech, Normal tone, Reflexes 2+ Psych/Mental Status: Appropriate, Normal Affect, Cooperative Lab/DI/Studies Reviewed: Laboratory Results - last 24 hr 04/18/16 06:30 WBC 8.6 RBC 2.55 L Hgb 8.2 L Hct 24.5 L MCV 96 MCH 32.0 MCHC 33.4 RDW 14.5 Plt Count 106 L MPV 9.1 - Assessment (1) Acute kidney injury superimposed on chronic kidney disease Acute N17.9 - ACUTE KIDNEY FAILURE, UNSPECIFIED; N18.9 - CHRONIC KIDNEY DISEASE, UNSPECIFIED Comment/Plan: Monitor. Recheck in a.m.. (2) Anemia Acute D64.9 - ANEMIA, UNSPECIFIED Qualifiers: Anemia type: other cause Iron deficiency anemia type: I Vitamin B12 deficiency anemia type: V Folate deficiency anemia type: F Bone marrow failure anemia type: B Hemolytic anemia type: H Other causes of anemia: chronic disease, kidney Qualified Code(s): N18.9 - Chronic kidney disease, unspecified; D63.1 - Anemia in chronic kidney disease Comment/Plan: Slightly worse today at 8.2. However would not transfuse at this level as some dilutional component. Continue to monitor. (3) UTI (urinary tract infection), bacterial Acute N39.0 - URINARY TRACT INFECTION, SITE NOT SPECIFIED; A49.9 - BACTERIAL INFECTION, UNSPECIFIED Comment/Plan: Continue linezolid for now (4) Hypertension Acute I10 - ESSENTIAL (PRIMARY) HYPERTENSION Qualifiers: Hypertension type: essential hypertension Comment/Plan: Hold meds due to relative hypotension. (5) Physical debility Acute R53.81 - OTHER MALAISE Comment/Plan: Consult Physical therapy to begin rehabilitation and gait training. Continue falls and safety precautions (6) Asthma Chronic J45.909 - UNSPECIFIED ASTHMA, UNCOMPLICATED Qualifiers: Asthma severity: mild persistent Asthma complication type: uncomplicated Qualified Code(s): J45.30 - Mild persistent asthma, uncomplicated Comment/Plan: Continue home medications (7) Hip pain Chronic M25.559 - PAIN IN UNSPECIFIED HIP Qualifiers: Laterality: right Qualified Code(s): M25.551 - Pain in right hip Comment/Plan: Status post revision of right hemiarthroplasty (8) Osteoporosis Chronic M81.0 - AGE-RELATED OSTEOPOROSIS W/O CURRENT PATHOLOGICAL FRACTURE Comment/Plan: Continue calcium and vitamin-D Case Care Discussed with: Patient, Family, Nursing Staff, Physical Therapy, Resource Management
[2016-04-18] MEDS: NS 1,000 ML IV SCH (17:07)
[2016-04-18] MEDS: PRAVASTATIN 20 MG TAB PO SCH (22:05)
[2016-04-19 04:55] VITALS: BMI 29.0
[2016-04-19] MEDS: SODIUM CHLORIDE 0.9% 3 ML FLUSH FLUSH SCH ×3 (05:08→17:50)
[2016-04-19] MEDS: OXYCODONE HCL 5 MG TABLET PO PRN ×2 (05:08→17:48)
[2016-04-19] MEDS: DOCUSATE-SENNA CONCENTRATE TAB PO SCH (05:27)
[2016-04-19] MEDS: ACETAMINOPHEN 325 MG/TAB TABLET PO SCH ×2 (05:28→15:29)
[2016-04-19 06:05] LABS: MPV 9.5 fL (7.4-10.4)
[2016-04-19] MEDS: ALBUTEROL 0.083% 3 ML NEB NEB SCH ×3 (06:06→15:38)
[2016-04-19 06:52] LABS: BLOOD UREA NITROGEN 26 MG/DL (7-17); CALCIUM 8.4 MG/DL (8.4-10.2); CALCULATED OSMOLALITY 265 MOs/Kg (270-290); CHLORIDE 108 mEq/L (98-107); GLUCOSE 64 MG/DL (70-99); SODIUM LEVEL 136 mEq/L (137-146)
[2016-04-19] MEDS: BUDESONIDE 0.5 MG NEB NEB SCH (07:24)
--- NOTE | 2016-04-19 07:31 | PCM.ORTHBL ---
- Subjective Post Op Day: 3 Daily Assessment - Patient: Reports: No new complaints, Awake Alert Oriented x4 , Feels better, Still having pain (with movement), Tolerating Regular Diet, Voiding without difficulty, Afebrile, Ambulating with Physical Therapist (has been limited), Other (denies chest pain). Denies: Shortness of breath, Nausea, Vomiting - Objective / Physical Exam Vital Signs: Temperature: 98.5 F (04/19/16 04:52) HR: 75 (04/19/16 04:52)RR: 16 (04/19/16 04: 52) BP: 142/65 (04/19/16 04:52)Pulse Ox: 94 (04/19/16 04:52) General: Alert, Oriented x3, Cooperative, No acute distress, Well appearing Musculoskeletal / Extremities: 2 plus Dorsalis Pedis Pulse, Dressing Clean/Dry/ Intact. negative: Tenderness (no calf tenderness) Neurological: Positive Sensation First Dorsal Web Space, Sensation to light touch intact, Extensor Hallicus Longus Intact, Flexor Hallicus Longus Intact, Dorsiflexion Intact, Plantarflexion Intact Laboratory/Diagnostics Reviewed: 04/19/16 05:08 04/19/16 05:08 - Assessment and Plan (1) Status post revision of total hip replacement Acute Z96.649 - PRESENCE OF UNSPECIFIED ARTIFICIAL HIP JOINT Present on Admission: Yes Plan: POD#3 Continue pain management PT/OT/WBAT TEDS/SCDS/ECASA 325mg BID for 30 days post-op for DVT prophylaxis. Patient has history of recurrent hematoma and wound dehiscence. She has IVC filter in place. Low H/H today. 2 units of blood to be given D/C plan for [facility] later today after blood transfusion. <Grover Nunn - Last Filed: 04/19/16 08:36> - Objective / Physical Exam Vital Signs: Temperature: 96.9 F (04/19/16 09:55) HR: 67 (04/19/16 09:55)RR: 20 (04/19/16 09: 55) BP: 117/58 (04/19/16 09:55)Pulse Ox: 98 (04/19/16 09:55) Additional Notes: Pt seen and examined. Agree with above. AVSS R hip incisional vac in place. RLE NVI. No calf TTP -POD #3 s/p abx spacer removal and revision R hip hemiarthroplasty -Pt being transfused 2 units PRBCs today for symptomatic acute blood loss anemia -PT/OT/WBAT -anterolateral hip precautions -TEDS/SCDS/ECASA -d/c plan to [facility] today if ok with medicine <Georges Child - Last Filed: 04/19/16 10:36>
--- NOTE | 2016-04-19 07:36 | PCM.DCS92 ---
- Final/Secondary Discharge Diagnosis (1) Status post revision of total hip replacement Acute Z96.649 - PRESENCE OF UNSPECIFIED ARTIFICIAL HIP JOINT Present on Admission: Yes Plan/Goal/Comment: Progressing slowly with PT. WBAT. Continue pain management. ECASA 325mg BID for 30 days post-op for DVT prophylaxis. Patient has IVC filter in place. Wound vac dressing to be removed on POD#7, then daily dry dressing changes as needed. Anterolateral hip precautions. Stable for discharge to [facility]. To follow-up in office in 2 weeks or earlier as needed. Discharge Disposition: Long-Term Facility Discharge Condition: Stable Cognitive Discharge Status: Unimpaired Fuctional Discharge Status: Walker Assistance, Fall Risk, Recent lower extremety joint replacement, Post-op Weakness Physician Follow up/Referrals: Georges Child DO [Staff Physician] - Two Weeks Home Medications/ New Prescriptions: New Aspirin (OrangeEnteric Coated) [Ecotrin] 325 mg PO BID #60 tab Linezolid [Zyvox] 600 mg PO BID #10 tablet Oxycodone Immediate Release [Oxycodone Immediate Release (OxyIR)] 5 mg PO Q4H PRN #40 tab PRN Reason: Pain Senna Concentrate [Senokot] 2 tab PO QHS #60 tablet No Action Calcium Carb/Vit D3/Minerals [Calcium 600 + D Tablet] 1 tab PO DAILY Ascorbic Acid [Vitamin C] 500 mg PO DAILY Pravastatin [Pravachol] 20 mg PO DAILY Budesonide/Formoterol Fumarate [Symbicort 160-4.5 Mcg Inhaler] 2 puff INH BID Carvedilol [Coreg] 12.5 mg PO QAM Ten Sleep-3S/Dha/Epa/Fish Oil [Fish Oil 1,200 mg Softgel] 1 cap PO DAILY Gluc 2Kcl/Chondr/Jeanne Hy/Hy AC [Glucosamine & Chondroitin Cap] 1 cap PO DAILY Vitamin E 200 unit PO DAILY Vitamin B Complex [B Complex] 1 tab PO DAILY Bupropion HCl [Bupropion HCl Sr] 100 mg PO BID Fluticasone Propionate [Flonase] 2 spray AYLA DAILY Carvedilol [Coreg] 25 mg PO HS Oxycodone Immediate Release [Oxycodone Immediate Release (OxyIR)] 5 mg PO Q4- 6H PRN PRN Reason: Pain Turmeric Root Extract [Turmeric] 500 mg PO DAILY LZacacidoph & Paracasei,B.lactis [Probiotic] 1 each PO DAILY Methylcellulose [Fiber Therapy] 1,000 mg PO DAILY Omeprazole [Prilosec] 20 mg PO DAILY Discharge Home Medication List Calcium Carb/Vit D3/Minerals [Calcium 600 + D Tablet] 1 tab PO DAILY 05/05/12 [ History Confirmed 04/17/16 Last Taken 04/15/16 08:00] Ascorbic Acid [Vitamin C] 500 mg PO DAILY 01/24/15 [History Confirmed 04/17/16 Last Taken 04/15/16 08:00] Pravastatin [Pravachol] 20 mg PO DAILY 01/24/15 [History Confirmed 04/17/16 Last Taken 04/15/16 08:00] Budesonide/Formoterol Fumarate [Symbicort 160-4.5 Mcg Inhaler] 2 puff INH BID [History Confirmed 04/17/16 Last Taken 04/16/16 07:00] Carvedilol [Coreg] 12.5 mg PO QAM 11/22/15 [History Confirmed 04/17/16 Last Taken 04/16/16 07:00] Bupropion HCl [Bupropion HCl Sr] 100 mg PO BID 01/02/16 [History Confirmed 04/17 Last Taken 04/16/16 07:00] Fluticasone Propionate [Flonase] 2 spray AYLA DAILY 01/02/16 [History Confirmed 04/17/16 Last Taken 04/16/16 07:00] Gluc 2Kcl/Chondr/Jeanne Hy/Hy AC [Glucosamine & Chondroitin Cap] 1 cap PO DAILY [History Confirmed 04/17/16 Last Taken 04/15/16 08:00] Ten Sleep-3S/Dha/Epa/Fish Oil [Fish Oil 1,200 mg Softgel] 1 cap PO DAILY 01/02/16 [ History Confirmed 04/17/16 Last Taken 1 Week Ago] Vitamin B Complex [B Complex] 1 tab PO DAILY 01/02/16 [History Confirmed Last Taken 04/15/16 08:00] Vitamin E 200 unit PO DAILY 01/02/16 [History Confirmed 04/17/16 Last Taken 08:00] Carvedilol [Coreg] 25 mg PO HS 04/13/16 [History Confirmed 04/17/16 Last Taken 04/15/16 20:00] L.acidoph & Paracasei,B.lactis [Probiotic] 1 each PO DAILY 04/14/16 [History Confirmed 04/17/16 Last Taken 04/15/16 08:00] Methylcellulose [Fiber Therapy] 1,000 mg PO DAILY 04/14/16 [History Confirmed Last Taken 04/15/16 08:00] Turmeric Root Extract [Turmeric] 500 mg PO DAILY 04/14/16 [History Confirmed Last Taken 04/15/16 08:00] Omeprazole [Prilosec] 20 mg PO DAILY 04/17/16 [History Confirmed 04/17/16 Last Taken Unknown] Aspirin (OrangeEnteric Coated) [Ecotrin] 325 mg PO BID #60 tab 04/19/16 [Rx Last Taken Unknown] Linezolid [Zyvox] 600 mg PO BID #10 tablet 04/19/16 [Rx Last Taken Unknown] Oxycodone Immediate Release [Oxycodone Immediate Release (OxyIR)] 5 mg PO Q4H PRN #40 tab 04/19/16 [Rx Last Taken Unknown] Senna Concentrate [Senokot] 2 tab PO QHS #60 tablet 04/19/16 [Rx Last Taken Unknown] Additional Instructions: DATE: 04/19/16 Post Hospital Stay Joint Precautions Anterolateral Hip Joint Precautions For the safety of your new hip, you should follow these precautions, especially during the first three months after surgery. n DO use one or two pillows between your legs when sleeping, especially when you turn onto the non-operative side to rest. This will keep your surgery hip in a good position. n DO NOT cross your surgery leg over your other leg. n DO NOT turn your surgery leg inward, or allow knees to touch. See photo #1. n DO NOT bend your surgery hip more than 90 degrees. See photo #2. Also remember .. n DO NOT pivot or twist on the surgery leg. n DO NOT reach forward to the floor from a sitting position. See photo #3. n DO NOT sit on low chairs or low toilets. It is important that you sit with your hips even with or higher than your knees. Also, use a bedside commode. n DO NOT do any of the following activities until cleared by your surgeon: 1. Return to work 2. Drive a car 3. Participate in sports 4. Engage in sex 5. Take a tub bath Diet at Discharge: As Tolerated, Regular Activity: As Tolerated, No Heavy Lifting, No Driving Call Office For: Worsening Symptoms, Wound is Draining Pus, Fever over 101 F, Fever over 100.5, Wound is Painful, Wound is Red, Weight Gain (see below), Pain Uncontrolled By Meds, Other (See Details) Discontinue use of:: Alcohol, All Illegal Substances, All Types of Tobacco - DC Summary Notes Hospital Course Note:: Discharge summary on patient named TI DELGADO admitted to [facility] on 04/16/16 by Georges Child DO. Date of discharge is [04/19/16]. Afebrile. Hospital course and surgery uneventful. Progressing slowly with PT. WBAT. Continue pain management. ECASA 325mg BID for 30 days post-op for DVT prophylaxis. Patient has IVC filter in place. Wound vac dressing to be removed on POD#7, then daily dry dressing changes as needed. Anterolateral hip precautions. Stable for discharge to [facility]. To follow-up in office in 2 weeks or earlier as needed. Wound Care Surgical Site: Yes Site Description (if applicable): right hip Dressing/Site Care (if applicable): Wound vacl dressing to be removed on POD#7, then daily dry dressing changes as needed Medical Equipment (Order must still be written on paper): Walker Remove Transdermal Scopalamine patch if present: YES Medication Instructions: Take Stool Softener, Rx on Chart Continue Ice Packs/Ice Machine to Operative Area: Yes Activity as Tolerated: Yes Weight Bearing: Full Abduction Pillow: YES Current Dressing: Other (Wound vac) Dressing Care: Keep Wound Clean & Dry, Shower with Tegaderm Dsg, No Tub Baths, Other Instructions Below (Wound vacl dressing to be removed on POD#7, then daily dry dressing changes as needed) - Consults/Home Health Outpatient Consults: None - Physical Exam Vital Signs: Initial Vitals Temperature 97.8 F 04/16/16 10:41 Pulse Rate 68 04/16/16 10:41 Respiratory Rate 18 04/16/16 10:41 Blood Pressure 186/82 H 04/16/16 10:41 Pulse Oxygen Saturation 96 04/16/16 10:41 Last Vital Signs Temp 98.5 F 04/19/16 04:52 Pulse 75 04/19/16 04:52 Resp 16 04/19/16 04:52 BP 142/65 04/19/16 04:52 Pulse Ox 94 04/19/16 04:52 Constitutional: No apparent distress, Alert, Well appearing Oriented to: Time, Person, Place - HEENT Head: Normal - Musculoskeletal Extremities: Pedal Pulse, Other (dressing clean, dry, intact). negative: Calf Tenderness - Neurologic Memory Impaired: Normal Motor Function: Normal Cranial Nerve: Normal Cerebellar: Normal Thought: Coherent Perception: Normal
[2016-04-19] MEDS: CARVEDILOL 6.25 MG TAB PO SCH (07:48)
[2016-04-19] MEDS: FLUTICASONE PROPIONATE 16 GM BOT NAS SCH (07:48)
[2016-04-19] MEDS: OMEGA-3-ACID ETHYL ESTERS 1000 MG CAP PO SCH (07:48)
[2016-04-19] MEDS: LINEZOLID 600 MG TAB PO SCH (07:48)
[2016-04-19] MEDS: PSYLLIUM 1 PACK PO SCH (07:48)
[2016-04-19] MEDS: CALCIUM CARBONATE + VITAMIN D 500 MG TAB PO SCH ×2 (07:48→17:48)
[2016-04-19] MEDS: Aspirin (Orange Enteric Coated) 325 mg tab PO SCH ×2 (07:48→17:48)
[2016-04-19] MEDS: OXYCODONE (OxyCONTIN) 10 MG TAB PO SCH (07:48)
[2016-04-19] MEDS: PROBIOTIC BLEND TAB PO SCH (10:55)
--- NOTE | 2016-04-19 10:55 | GENMEDPROG ---
Chief Complaint: Feels well. Pain has improved. Blood pressures now stable. No chest pain or shortness of breath Notes Reviewed: Yes Events from last night noted and discussed with Clinical Staff Current Medication List: Reviewed Currently: Denies: Cough, Wheezing, FONSECA, SOB, Nausea and Vomiting, Abdominal Pain - Physical Examination Vital Signs and I&O: Last Vital Signs Temp 96.9 F L 04/19/16 09:55 Pulse 67 04/19/16 09:55 Resp 20 04/19/16 09:55 BP 117/58 L 04/19/16 09:55 Pulse Ox 98 04/19/16 09:55 Oxygen Pulse Oxygen Saturation 98 O2 Device Room Air Oxygen Flow Rate 1 Fraction of Inspired Oxygen ( 100 FIO2) Intake & Output 04/16/16 04/17/16 04/18/16 04/19/16 23:59 23:59 23:59 23:59 Intake Total 3414 1279 120 Output Total 740 134 7384 650 Balance -900 2904 -171 -530 Patient's weight 84.822 kg 85.36 kg 84 kg General: Alert, Oriented x3, Cooperative, No acute distress, Well appearing HEENT: Normal, PERRLA, EOMI, Anicteric Sclera Neck: Non-tender, Full range of motion, Normal Trachea alignment, Normal inspection. negative: JVD Lymphatics: Normal. negative: Adenopathy Respiratory: Normal - CTA Cardiovascular: Regular rate and rhythm, No Gallops,Rubs/Murmurs GI: Normal bowel sounds, Soft, Non tender, No hepatospenomegaly Extremities/Musculoskeletal: Normal pulses, Tenderness. negative: Swelling, Edema, Clubbing Skin: Warm,Dry and Intact, No rashes, No breakdown Neurological: Normal speech, Strength at 5/5 X4 ext, Normal tone, Cranial nerves 3-12 NL, Reflexes 2+ Psych/Mental Status: Appropriate, Normal Affect, Cooperative Lab/DI/Studies Reviewed: Laboratory Results - last 24 hr 04/16/16 04/19/16 04/19/16 09:21 05:08 05:08 WBC 8.6 RBC 2.49 L Hgb 7.9 L Hct 24.0 L MCV 96 MCH 31.9 MCHC 33.2 RDW 14.5 Plt Count 102 L MPV 9.5 Sodium 136 L Potassium 4.2 Chloride 108 H Carbon Dioxide 24 Anion Gap 8 BUN 26 H Creatinine 1.10 H Estimated GFR (MDRD) 47 L Glucose 64 L Calculated Osmolality 265 L Calcium 8.4 Blood Type O POSITIVE Antibody Screen Negative Crossmatch See Detail - Assessment (1) Acute kidney injury superimposed on chronic kidney disease Acute N17.9 - ACUTE KIDNEY FAILURE, UNSPECIFIED; N18.9 - CHRONIC KIDNEY DISEASE, UNSPECIFIED Comment/Plan: Creatinine stable at 1.1. Blood pressures are good (2) Anemia Acute D64.9 - ANEMIA, UNSPECIFIED Qualifiers: Anemia type: other cause Iron deficiency anemia type: I Vitamin B12 deficiency anemia type: V Folate deficiency anemia type: F Bone marrow failure anemia type: B Hemolytic anemia type: H Other causes of anemia: chronic disease, kidney Qualified Code(s): N18.9 - Chronic kidney disease, unspecified; D63.1 - Anemia in chronic kidney disease Comment/Plan: Mild. Being transfused today. (3) UTI (urinary tract infection), bacterial Acute N39.0 - URINARY TRACT INFECTION, SITE NOT SPECIFIED; A49.9 - BACTERIAL INFECTION, UNSPECIFIED Comment/Plan: On linezolid. Treat for 5 more days at 600 mg twice daily (4) Hypertension Acute I10 - ESSENTIAL (PRIMARY) HYPERTENSION Qualifiers: Hypertension type: essential hypertension Comment/Plan: Blood pressures stable. Can resume home medications (5) Physical debility Acute R53.81 - OTHER MALAISE Comment/Plan: Consult Physical therapy to begin rehabilitation and gait training. Continue falls and safety precautions (6) Asthma Chronic J45.909 - UNSPECIFIED ASTHMA, UNCOMPLICATED Qualifiers: Asthma severity: mild persistent Asthma complication type: uncomplicated Qualified Code(s): J45.30 - Mild persistent asthma, uncomplicated Comment/Plan: Continue home medications (7) Hip pain Chronic M25.559 - PAIN IN UNSPECIFIED HIP Qualifiers: Laterality: right Qualified Code(s): M25.551 - Pain in right hip Comment/Plan: Status post revision of right hemiarthroplasty (8) Osteoporosis Chronic M81.0 - AGE-RELATED OSTEOPOROSIS W/O CURRENT PATHOLOGICAL FRACTURE Comment/Plan: Continue calcium and vitamin-D Case Care Discussed with: Patient, Nursing Staff, Physical Therapy, Resource Management, Respiratory Therapy, Wastewater Project Manager
[2016-04-19] MEDS: VIT B-C COMPLEX (NEPHROVITE) TAB PO SCH (10:56)
[2016-04-19] MEDS: ASCORBIC ACID 500 MG TAB PO SCH (10:56)
[2016-04-19] MEDS: NS 1,000 ML IV SCH (15:29)
[2016-04-19 17:37] VITALS: BP 196/79; PULSE 78; TEMP 97.7
[2016-04-19] MEDS ORDERED: DOCUSATE-SENNA CONCENTRATE TAB PO SCH (21:00)
== END 2016-04-19 18:33 | DRG 940 ==
LOC: SDC 09:12 → MPS3 18:40
PROVIDERS: ADMIT Orthopaedic Surgery; ATTEND Orthopaedic Surgery
PROC: 0SP908Z Removal of Spacer from Right Hip Joint, Open Approach (ICD-10-PCS; 2016-04-16)
PROC: 0SRR0JZ Replacement of Right Hip Joint, Femoral Surface with Synthetic Substitute, Open Approach (ICD-10-PCS; principal; 2016-04-16 10:35)
PROC: 30233N1 Transfusion of Nonautologous Red Blood Cells into Peripheral Vein, Percutaneous Approach (ICD-10-PCS; 2016-04-19)
DX: T84.51XD Infection and inflammatory reaction due to internal right hip prosthesis, subsequent encounter (principal); N17.9 Acute kidney failure, unspecified; J96.10 Chronic respiratory failure, unspecified whether with hypoxia or hypercapnia; N39.0 Urinary tract infection, site not specified; Y83.1 Surgical operation with implant of artificial internal device as the cause of abnormal reaction of the patient, or of later complication, without mention of misadventure at the time of the procedure; Z79.2 Long term (current) use of antibiotics; I51.89 Other ill-defined heart diseases; J45.30 Mild persistent asthma, uncomplicated; I12.9 Hypertensive chronic kidney disease with stage 1 through stage 4 chronic kidney disease, or unspecified chronic kidney disease; D64.9 Anemia, unspecified; N18.9 Chronic kidney disease, unspecified; R53.81 Other malaise; M81.0 Age-related osteoporosis without current pathological fracture; Z79.01 Long term (current) use of anticoagulants; B95.7 Other staphylococcus as the cause of diseases classified elsewhere; B95.2 Enterococcus as the cause of diseases classified elsewhere; Z79.899 Other long term (current) drug therapy; K21.9 Gastro-esophageal reflux disease without esophagitis; R26.2 Difficulty in walking, not elsewhere classified
CPT/HCPCS: 36430; 51798; 72170; 80048; 85014; 85018; 85027; 86850; 86900; 86901; 86920; 87070; 87075; 94640; 97162; 97165; C9290; G0237; J0131; J0330; J1100; J1170; J2001; J2370; J2405; J3010; J3370; J3490; J7030; J7070; P9016